=== PATIENT | female | born 1980 | race Two or more races ===

== ENCOUNTER 2017-02-14 08:43 | Emergency (ER) | payer OTHER ==
[~2017-02-14] VITALS: Ht 154.9 cm; Wt 54.4 kg
[2017-02-14 08:52] VITALS: BP 102/64
[2017-02-14] MEDS ORDERED: Tetracaine 0.5% Opth Soln LEFT EYE ONE (09:00)
[2017-02-14] MEDS ORDERED: Fluorescein Strips LEFT EYE ONE (09:00)
[2017-02-14] MEDS ORDERED: Fluorescein Strips ONE (09:00)
[2017-02-14] MEDS ORDERED: Tetracaine 0.5% Opth Soln ONE (09:00)
--- NOTE | 2017-02-14 09:02 | Emergency Room Report ---
History of Present Illness General Chief Complaint: Eye Problems Source: Patient Present Illness HPI She is a 36-year-old female who presented after increased pain to her left eye. Patient stated that she was working at [employer] when some hot butter and water injured her left eye. Injury occurred roughly 2 hours prior to arrival. Patient stated that she had moderate pain. The patient denies any blurred vision she denies any flashing lights. She reports having mild photophobia. Allergies: Coded Allergies: No Known Allergies (Unverified , 02/14/17) Patient History Past Medical History: see triage record Reviewed Nursing Documentation: PMH: Agreed, PSxH: Agreed Nursing Documentation-PMH Past Medical History: No Stated History Review of Systems All Other Systems: negative except mentioned in HPI Physical Exam Vital Signs Date Time Temp Pulse Resp B/P Pulse Ox O2 Delivery O2 Flow Rate FiO2 02/14/17 08:46 98.1 78 20 99/67 99 Room Air General Appearance: well appearing, no apparent distress, alert, GCS 15 Head: normocephalic, atraumatic ENT: hearing grossly normal, normal voice Neck: full range of motion, supple Respiratory: normal inspection, no respiratory distress, speaking full sentences Cardiovascular #1: normal inspection Musculoskeletal: no calf tenderness Neurologic: normal gait Psychiatric: mood/affect normal Skin: no rash Medical Decision Making Diagnostic Impression: Primary Impression: Eye burn ER Course Patient presented for eye pain. Differential diagnosis included was not limited to foreign body, perforation, burn, ulcer. The patient is advised to wear protective eyewear. She was noted to have some fluorescein uptake to the medial portion of the sclera without any corneal uptakePatient given prescription for prescription eyedrop The patient is advised to follow up with ophthalmology in 1-2 days for recheck. Patient is advised to return if any worsening condition or if any changes in status that are concerning. Last Vital Signs Date Time Temp Pulse Resp B/P Pulse Ox O2 Delivery O2 Flow Rate FiO2 02/14/17 08:52 97.9 81 18 102/64 99 Room Air Status: improved Disposition: HOME, SELF-CARE Condition: Stable Scripts Acetaminophen* (ACETAMINOPHEN EXTRA STRENGTH*) 500 Mg Tablet 500 MG ORAL Q8H Y for Fever/Headache/Mild Pain, #30 TAB Prov: Delgado Jefferson 02/14/17 Gentamicin Sulfate* (GENTAK*) 5 Ml Drops 1 DROP LEFT EYE Q4H, #1 DROP 0 Refills Prov: Delgado Jefferson 02/14/17 Delgado Jefferson Feb 14, 2017 09:01
[2017-02-14] MEDS ORDERED: GENTAK5 ML LEFT EYE (09:15)
[2017-02-14] MEDS ORDERED: ACETAMINOPHEN500 M3 ORAL (09:15)
[2017-02-14 09:30] VITALS: BP 102/64
== END 2017-02-14 09:31 | disposition home or self-care (01) ==
LOC: EMR 09:10
DX: T26.42XA Burn of left eye and adnexa, part unspecified, initial encounter (principal); X11.8XXA Contact with other hot tap-water, initial encounter; Y93.9 Activity, unspecified; Y99.0 Civilian activity done for income or pay
CPT/HCPCS: 99284